=== PATIENT | female | born 1990 | race Hispanic/Latino ===

== ENCOUNTER 2018-11-26 19:32 | Emergency (ER) | payer BC ==
[~2018-11-26] VITALS: Ht 170.2 cm; Wt 79.4 kg
[2018-11-26] MEDS ORDERED: TAMIFLU75 MG PO (21:09)
--- NOTE | 2018-11-27 07:28 | EKG ---
[facility] [address] [facility] [address] [place], [place] [address] Signed Sinus tachycardia Cannot rule out Anterior infarct , age undetermined Abnormal ECG No previous ECGs available Confirmed by LIANNE ACOSTA MD ([id number] on 11/27/2018 7:28:18 AM Electronically Signed By: LIANNE ACOSTA MD 11/27/18 0728 PATIENT NAME: TASNEEM CHURCH Electrocardiogram DATE OF : 86 PHYSICIAN: LIANNE ACOSTA MD REPORT #: [id number] REPORT IS CONFIDENTIAL AND NOT TO BE RELEASED WITHOUT AUTHORIZATION
== END 2018-11-26 21:29 | disposition home or self-care (01) ==
LOC: ED 19:32
DX: O99.512 Diseases of the respiratory system complicating pregnancy, second trimester (principal); J10.1 Influenza due to other identified influenza virus with other respiratory manifestations; Z3A.17 17 weeks gestation of pregnancy
CPT/HCPCS: 80053; 81001; 83690; 84703; 85025; 93005; 93010; 96361; 96374; 99283-25; J2405; J7030